=== PATIENT | female | born 1985 | race Caucasian/White ===

== ENCOUNTER 2020-07-12 11:40 | Emergency (ER) | payer OTHER ==
[2020-07-12 11:54] VITALS: BP 128/80
[2020-07-12] MEDS ORDERED: predniSONE 20 MG TABLET PO STA (12:55)
--- NOTE | 2020-07-12 13:00 | ED Physician Documentation ---
PD HPI LOWER EXT INJURY - Stated complaint Stated Complaint: R KNEE PX/SWELLING - Chief complaint Chief Complaint: Ext Problem - History obtained from History obtained from: Patient - Additional information Additional information: 25-year-old woman has had a lot of joint problems in her life. She has had some issues with the right knee as well. About a month ago she was down on her knees for a couple of hours grooming a dog. Been bothering her ever since but this morning she woke up with significant swelling of the right knee. 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, Tubal ligation - Present Medications Home Medications: Ambulatory Orders Medication Instructions Recorded Confirmed Cyclobenzaprine [Flexeril] 10 mg PO TID PRN #20 tablet 07/12/20 predniSONE [Deltasone] 20 mg PO [id number] #21 tab 07/12/20 - Allergies Allergies/Adverse Reactions: Allergies Allergy/AdvReac Type Severity Reaction Status Date / Time acetaminophen [From Percocet] AdvReac Nausea Verified 07/12/20 12:51 hydrocodone [From Vicodin] AdvReac Nausea Verified 07/12/20 12:51 oxycodone [From Percocet] AdvReac Nausea Verified 07/12/20 12:51 - Social History Does the pt smoke?: No Smoking Status: Former smoker PD ED PE NORMAL - Vitals Vital signs reviewed: Yes - General General: Alert and oriented X 3, No acute distress - Extremities Extremities: Other (The right knee has a large effusion, its not warm or tender. No severely limited range of motion.) - Neuro Neuro: Alert and oriented X 3, Normal speech Results - Vitals Vitals: Vital Signs - 24 hr 07/12/20 11:47 Temperature 36.7 C Heart Rate 99 Respiratory 16 Rate Blood Pressure 128/80 O2 Saturation 97 Oxygen O2 Source Room air - Labs Labs: Laboratory Tests 07/12/20 07/12/20 07/12/20 13:18 13:18 13:18 WBC 4.3 L RBC 4.60 Hgb 13.5 Hct 40.9 MCV 88.9 MCH 29.3 MCHC 33.0 RDW 12.1 Plt Count 287 MPV 9.4 Neut # (Auto) 2.4 Lymph # (Auto) 1.4 L [place] # (Auto) 0.5 Eos # (Auto) 0.1 Baso # (Auto) 0.0 Absolute Nucleated RBC 0.00 Nucleated RBC % 0.0 ESR 8 Sodium Potassium Chloride Carbon Dioxide Anion Gap BUN Creatinine Estimated GFR (MDRD) Glucose Uric Acid Calcium C-Reactive Protein Rheumatoid Factor NEGATIVE 07/12/20 13:18 WBC RBC Hgb Hct MCV MCH MCHC RDW Plt Count MPV Neut # (Auto) Lymph # (Auto) [place] # (Auto) Eos # (Auto) Baso # (Auto) Absolute Nucleated RBC Nucleated RBC % ESR Sodium 137 Potassium 3.9 Chloride 103 Carbon Dioxide 22 Anion Gap 12.0 BUN 10 Creatinine 0.5 Estimated GFR (MDRD) 150 Glucose 81 Uric Acid 3.0 Calcium 8.8 C-Reactive Protein < 1.0 Rheumatoid Factor PD MEDICAL DECISION MAKING - ED course ED course: 25-year-old woman has a history of polyarthropathy and now a joint effusion which is likely posttraumatic versus less likely inflammatory. Her inflammatory markers and uric acid are reassuring against a systemic cause of her polyarthropathy. Departure - Departure Disposition: 01 Home, Self Care Clinical Impression: Knee effusion, right Condition: Good Record reviewed to determine appropriate education?: Yes Instructions: ED Effusion Knee Prescriptions: predniSONE [Deltasone] 20 mg PO [id number] #21 tab Cyclobenzaprine [Flexeril] 10 mg PO TID PRN #20 tablet PRN Reason: Spasms Comments: You were seen today for an effusion of the right knee joint. We have prescribed steroids for this and some muscle relaxers. Your inflammatory markers and basic blood work are negative. Still pending, and will complete today are JUAN JOSE screen with reflex titers, anti-CCP, and rheumatoid factor. To get these results, the easiest way is to log into the hospital website at [email or web address] and go to the "[facility]" tab and sign up for the patient portal. You should also discuss the pending [place] Return for new or worsening symptoms. Discharge Date/Time: 07/12/20 14:07
[2020-07-12 13:25] LABS: BASOPHILS % (AUTO) 0.9 %; EOSINOPHILS # (AUTO) 0.1 10^3/uL (0.0-0.7); EOSINOPHILS % (AUTO) 1.4 %; HGB - HEMOGLOBIN 13.5 g/dL (12.0-16.0); LYMPHOCYTES # (AUTO) 1.4 10^3/uL (1.5-3.5); LYMPHOCYTES % (AUTO) 32.7 %; MEAN CORPUSCULAR HEMOGLOBIN 29.3 pg (27.0-31.0); MEAN CORPUSCULAR VOLUME 88.9 fL (81.0-99.0); MEAN PLATELET VOLUME 9.4 fL (7.9-10.8); MONOCYTES # (AUTO) 0.5 10^3/uL (0.0-1.0); MONOCYTES % (AUTO) 10.6 %; NEUTROPHILS # (AUTO) 2.4 10^3/uL (1.5-6.6); NEUTROPHILS % (AUTO) 54.2 %; PLT - PLATELET COUNT 287 10^3/uL (130-450); RED CELL DISTRIBUTION WIDTH 12.1 % (12.0-15.0); WHITE BLOOD COUNT 4.3 x10^3/uL (4.8-10.8)
--- NOTE | 2020-07-12 13:30 | XRAY Report ---
PROCEDURE: Knee 4 View RT INDICATIONS: knee pain/effusion TECHNIQUE: 3 views of the right knee(s) were acquired. COMPARISON: None. FINDINGS: Bones: No fractures or dislocations. No suspicious bony lesions. The knee joint spaces are relativ pb well-preserved. Soft tissues: There is a minimal joint effusion. No suspicious soft tissue calcifications. IMPRESSION: Minimal joint effusion. No significant plain film abnormality is seen. If there is strong clinical concern for internal derangement of the knee, please consider a dedicated , scheduled knee MRI for further evaluation (assuming that there is no contraindication). Reviewed by: Robinson Gusman MD on 07/12/2020 12:28 PM [facility] Approved by: Robinson Gusman MD on 07/12/2020 12:28 PM [facility] Station ID: [id number]
[2020-07-12 13:41] LABS: BUN - BLOOD UREA NITROGEN 10 mg/dL (6-20); CALCIUM 8.8 mg/dL (8.5-10.3); CARBON DIOXIDE - CO2 22 mmol/L (21-32); CHLORIDE 103 mmol/L (101-111); CREATININE 0.5 mg/dL (0.4-1.0); GLUCOSE 81 mg/dL (70-100); SODIUM 137 mmol/L (135-145)
[2020-07-12 13:48] LABS: CRP - C-REACTIVE PROTEIN < 1.0 mg/dL (0-1.0)
[2020-07-12 14:01] LABS: RHEUMATOID FACTOR NEGATIVE (Negative)
[2020-07-16 07:52] LABS: ANA SCREEN NEGATIVE (NEGATIVE)
== END 2020-07-12 14:07 | disposition home or self-care (01) ==
LOC: EDBD 11:40 → ED 11:40
DX: M25.461 Effusion, right knee (principal); Z87.891 Personal history of nicotine dependence
CPT/HCPCS: 36415; 73564; 80048; 84550; 85025; 85651; 86038; 86140; 86200; 86430; 99283; 99284; J7512

== ENCOUNTER 2020-12-08 16:01 | Outpatient (CLI) | payer OTHER ==
[2020-12-08 16:18] LABS: BASOPHILS % (AUTO) 0.4 %; EOSINOPHILS # (AUTO) 0.1 10^3/uL (0.0-0.7); EOSINOPHILS % (AUTO) 1.3 %; HGB - HEMOGLOBIN 12.9 g/dL (12.0-16.0); LYMPHOCYTES # (AUTO) 1.2 10^3/uL (1.5-3.5); LYMPHOCYTES % (AUTO) 26.3 %; MEAN CORPUSCULAR HEMOGLOBIN 29.1 pg (27.0-31.0); MEAN CORPUSCULAR HGB CONC 33.1 g/dL (32.0-36.0); MEAN CORPUSCULAR VOLUME 87.8 fL (81.0-99.0); MEAN PLATELET VOLUME 8.8 fL (7.9-10.8); MONOCYTES # (AUTO) 0.3 10^3/uL (0.0-1.0); MONOCYTES % (AUTO) 6.7 %; NEUTROPHILS % (AUTO) 65.1 %; PLT - PLATELET COUNT 250 10^3/uL (130-450); RED BLOOD COUNT 4.44 10^6/uL (4.20-5.40); RED CELL DISTRIBUTION WIDTH 12.5 % (12.0-15.0); WHITE BLOOD COUNT 4.6 x10^3/uL (4.8-10.8)
== END 2020-12-08 16:02 | disposition home or self-care (01) ==
LOC: LAB 16:01
PROVIDERS: ATTEND Obstetrics & Gynecology
DX: N92.4 Excessive bleeding in the premenopausal period (principal)
CPT/HCPCS: 36415; 85025

== ENCOUNTER 2021-08-03 06:17 | Day surgery (SDC) | payer OTHER ==
[2021-08-03] MEDS ORDERED: LACTATED RINGERS 1,000 ML IV ONE ×3 (06:25→12:00)
[2021-08-03] MEDS ORDERED: CELECOXIB 100 MG CAPSULE PO ONE (06:34)
[2021-08-03] MEDS ORDERED: ACETAMINOPHEN 500 MG TABLET PO ONE (06:34)
[2021-08-03] MEDS ORDERED: GABAPENTIN 400 MG CAPSULE ONE (06:34)
[2021-08-03] MEDS ORDERED: CEFAZOLIN SODIUM IN 0.9 % NACL 2 GM/100 ML BAG IV ONE (06:35)
[2021-08-03] MEDS ORDERED: PHENAZOPYRIDINE 100 MG TABLET PO ONE (06:35)
[2021-08-03] MEDS ORDERED: metroNIDAZOLE 500 MG/100 ML 500 MG/100 ML BAG ONE (06:35)
[2021-08-03] MEDS ORDERED: ONDANSETRON 4 MG/2 ML VIAL ONE ×2 (07:12→12:46)
[2021-08-03] MEDS ORDERED: LIDOCAINE-MPF 2% 5 ML VIAL ONE (07:12)
[2021-08-03] MEDS ORDERED: PROPOFOL 200 MG/20 ML VIAL IVP ONE (07:12)
[2021-08-03] MEDS ORDERED: DEXAMETHASONE 4 MG/ML VIAL ONE (07:12)
[2021-08-03] MEDS ORDERED: MIDAZOLAM 2 MG/2 ML VIAL ONE (07:12)
[2021-08-03] MEDS ORDERED: fentaNYL 100 MCG/2 ML VIAL ONE ×2 (07:12→10:42)
[2021-08-03] MEDS ORDERED: ROCURONIUM 50 MG/5 ML VIAL ONE ×3 (07:12→10:29)
[2021-08-03] MEDS ORDERED: LIDOCAINE MPF 2%-EPI 1:200000 20 ML VIAL ONE (07:23)
[2021-08-03] MEDS ORDERED: METHYLENE BLUE 0.5% 50 MG/10 ML AMPULE ONE (07:23)
[2021-08-03] MEDS ORDERED: BUPIVACAINE 0.5% PF 10 ML VIAL ONE (07:23)
--- NOTE | 2021-08-03 07:27 | ANESTHESIA ---
Pre-Anesthesia VS, & Labs - Diagnosis menorrhagia, dysmenorrhea - Procedure Total Laparoscopic Hysterectomy Vital Signs: Temp Pulse Resp BP Pulse Ox 36.5 C 84 18 135/85 H 100 08/03/21 06:31 08/03/21 06:31 08/03/21 06:31 08/03/21 06:31 08/03/21 06:31 Height: 5 ft 4 in Weight (kg): 102 kg Body Mass Index: 38.6 BMI Classification: Obese - NPO >8 hours - Is Patient ?: No - Lab Results Current Lab Results: Laboratory Tests 08/03/21 07:00: POC Whole Bld Glucose 89 Lab results reviewed: Yes Home Medications and Allergies Cetirizine [ZyrTEC] 10 mg PO DAILY 03/08/21 Ferrous Sulfate 325 mg PO DAILY 03/08/21 buPROPion [Wellbutrin Xl] 150 mg PO DAILY 03/08/21 Allergies/Adverse Reactions: Allergies Allergy/AdvReac Type Severity Reaction Status Date / Time acetaminophen [From Percocet] AdvReac Nausea Verified 07/12/20 12:51 hydrocodone [From Vicodin] AdvReac Nausea Verified 07/12/20 12:51 oxycodone [From Percocet] AdvReac Nausea Verified 07/12/20 12:51 Anes History & Medical History - Anesthetic History Anesthesia Complications: reports: No previous complications Family history of Anesthesia Complications: Denies Family history of Malignant Hyperthermia: Denies - Medical History Cardiovascular: reports: None Pulmonary: reports: None Gastrointestinal: reports: GERD Urinary: reports: None Neuro: reports: Migraines Musculoskeletal: reports: None Endocrine/Autoimmune: reports: None Skin: reports: None Smoking Status: Former smoker - Surgical History General: reports: Cholecystectomy, Other Gynecologic: reports: section Exam General: Alert, Oriented x3, Cooperative, No acute distress Dental: WNL Mouth Openin Fingerbreadth Neck Mobility: Normal Mallampati classification: I Respiratory: Lungs clear, Normal breath sounds, No respiratory distress, No accessory muscle use Cardiovascular: Regular rate, Normal S1, Normal S2, No murmurs Plan Anesthesia Type: General Consent for Procedure(s) Verified and Reviewed: Yes Code Status: Attempt Resuscitation ASA classification: 2-Mild systemic disease Is this case an emergency?: No
[2021-08-03] MEDS ORDERED: ePHEDrine 50 MG/ML VIAL IVP PRN (07:28)
[2021-08-03] MEDS ORDERED: METOCLOPRAMIDE 10 MG/2 ML VIAL IVP PRN (07:28)
[2021-08-03] MEDS ORDERED: fentaNYL 100 MCG/2 ML VIAL IVP PRN (07:28)
[2021-08-03] MEDS ORDERED: MORPHINE 2 MG/ML CARPUJECT IVP PRN (07:28)
[2021-08-03] MEDS ORDERED: NALOXONE 0.4 MG/ML VIAL IVP PRN (07:28)
[2021-08-03] MEDS ORDERED: ATROPINE ABBOJECT 1 MG/10 ML SYRINGE IVP PRN (07:28)
[2021-08-03] MEDS ORDERED: HYDROmorphone 0.5 MG/0.5 ML SYRINGE IVP PRN (07:28)
[2021-08-03] MEDS ORDERED: ONDANSETRON 4 MG/2 ML VIAL IVP PRN (07:28)
[2021-08-03 07:35] LABS: BASOPHILS % (AUTO) 0.9 %; EOSINOPHILS # (AUTO) 0.1 10^3/uL (0.0-0.7); EOSINOPHILS % (AUTO) 2.1 %; HCT - HEMATOCRIT 39.3 % (37.0-47.0); HGB - HEMOGLOBIN 13.1 g/dL (12.0-16.0); LYMPHOCYTES # (AUTO) 1.1 10^3/uL (1.5-3.5); LYMPHOCYTES % (AUTO) 32.1 %; MEAN CORPUSCULAR HEMOGLOBIN 29.6 pg (27.0-31.0); MEAN CORPUSCULAR HGB CONC 33.3 g/dL (32.0-36.0); MEAN CORPUSCULAR VOLUME 88.9 fL (81.0-99.0); MEAN PLATELET VOLUME 9.6 fL (7.9-10.8); MONOCYTES # (AUTO) 0.3 10^3/uL (0.0-1.0); MONOCYTES % (AUTO) 8.1 %; NEUTROPHILS # (AUTO) 1.9 10^3/uL (1.5-6.6); NEUTROPHILS % (AUTO) 56.2 %; PLT - PLATELET COUNT 254 10^3/uL (130-450); RED BLOOD COUNT 4.42 10^6/uL (4.20-5.40); RED CELL DISTRIBUTION WIDTH 12.6 % (12.0-15.0); WHITE BLOOD COUNT 3.3 x10^3/uL (4.8-10.8)
[2021-08-03] MEDS ORDERED: LACTATED RINGERS 1,000 ML IV SCH (08:00)
[2021-08-03] MEDS ORDERED: ePHEDrine 50 MG/ML VIAL IVP ONE (08:52)
[2021-08-03] MEDS ORDERED: BUPIVACAINE 0.25%-EPI 1:200000 PF 30 ML VIAL SUBQ ONE (09:04)
[2021-08-03] MEDS ORDERED: METHYLENE BLUE 0.5% 50 MG/10 ML AMPULE IR ONE (09:04)
[2021-08-03] MEDS ORDERED: VASOPRESSIN 20 UNIT/ML VIAL IVP ONE (09:05)
[2021-08-03] MEDS ORDERED: VASOPRESSIN 20 UNIT/ML VIAL ONE (09:06)
[2021-08-03] MEDS ORDERED: LIDOCAINE 2%-EPI 1:100000 20 ML MDV SUBQ ONE ×2 (09:28)
[2021-08-03] MEDS ORDERED: BUPIVACAINE 0.5% PF 10 ML VIAL IM ONE ×2 (09:29)
[2021-08-03] MEDS ORDERED: SUGAMMADEX 200 MG/2 ML VIAL IVP ONE (11:04)
[2021-08-03] MEDS ORDERED: LIDOCAINE 2% URO-JET 5 ML SYRINGE UR ONE (11:14)
[2021-08-03] MEDS ORDERED: SCOPOLAMINE PATCH TOP PRN (11:39)
[2021-08-03] MEDS ORDERED: SIMETHICONE CHEW 80 MG TABLET PO PRN (11:39)
--- NOTE | 2021-08-03 11:56 | OPERATIVE REPORT ---
Operative Report - General Procedure Date: 08/03/21 Planned Procedure: Total laparoscopic hysterectomy with bilateral salpingectomy and cystoscopy Pre-Op Diagnosis: DUB and pelvic pain Procedure Performed: Total laparoscopic hysterectomy with bilateral salpingectomy and cystoscopy Post Op Diagnosis: Same - Procedure Note Primary Surgeon: Michelle Flores MD Secondary Surgeon: Ranjith Felix MD Anesthesia Provider: Lonny Cohen CRNA Pathology: Uterus with bilateral fallopian tubes and cervix. IV Fluids (mL): 1,800 Estimated Blood Loss (mL): 75 Urine Output (mL): 200 Indications: Patient is a 36-year-old G2, P2 here for total laparoscopic hysterectomy and cystoscopy. Surgery was recommended after patient presented with chief complaint heavy periods present for the the last 4 years. She changes a pad every 4 hours and has flow for total of 10 days. Often passes quarter sized clots. She gets up in the middle of the night to change her pad. She whenever she travels carries extra pads with her. She states she plans her life around her periods. She is also had difficulty with some midcycle bleeding. She gives a history of having been anemic in the past.Also has pain with menses that are minimally managed with NSAIDs. Avoiding NSAIDs 2/2 gastric bypass. Has had CS x2 and tubal ligation. Pelvic us in 09/2020 was unremarkable with EMS 7 mm. 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 She eats protein every 2 hours. She had gastric bypass in 2009, [id number]. She has had nutritional labs checked recently. She reports that she has had both a pap smear and endometrial biopsy. Confirmed biopsy was taken 09/23/20 and was absent of hyperplasia or malignancy. Last pap at [facility] was December 2017 and was wnl. Findings: Normal appearing uterus with evidence of prior tubal ligation, extensive bladder adhesions, normal appearing ovaries with small simple cyst of about 1 cm in size on the right ovary. Normal survey of the abdomen with poor visualization of the upper abdomen due to poorly mobilized viscera. Complications: None - Other Other Information/Narrative: Risks benefits and alternatives of the procedure were reviewed. Consent was again confirmed. Patient was brought to the operating room and underwent general anesthesia. She was placed in dorsal lithotomy position with legs resting in yellowfin stirrups. SCDs were in place and activated. Cefazolin 2 g IV was administered prior to start of procedure. She was prepped and draped in the usual sterile fashion. Surgical timeout was performed. Bimanual exam was performed. Sterile speculum was placed. The cervix was visualized and a total of 20 cc of 2% lidocaine and 0.25% bupivicaine with epinephrine was injected into the uterosacral ligaments. The cervical os was serially dilated with Hegar dilators to accommodate the uterine manipulator. A total of 10 cc of vasopressin 10 units in 50 cc NS was injected into the cervix to allow for further dilation. The Recreation Engineer uterine manipulator was placed, confirming that the cup was flush with the vaginal fornices. It was attached to the [email or web address] uterine positioning system. Sykes catheter was placed, the bladder was drained, and the bladder was then back filled with 50 cc of dilute methylene blue. The catheter was then clamped. The base of the umbilicus was anesthetized with intradermal injection of 0.5% Marcaine. A 5 mm skin incision was made with a scalpel. A 5 mm blunt trocar was inserted under direct visualization using Visiport. Once the port was confirmed to be placed intraperitoneally, the abdomen was insufflated to 15 mmHg with CO2 gas Exploration of the abdomen and pelvis was confirmed that no injury was sustained with placement of the trocar. Two additional 5 mm ports were placed in the right and left lower quadrants, taking care to avoid the epigastric arteries, while under direct visualization via laparoscopic guidance. The abdomen was explored with the laparoscope, with findings as noted. The left fallopian tube was grasped and elevated at the fimbriated end. The underlying mesosalpinx was sealed and resected to the insertion point onthe uterine cornua using the Ligasure device. The round ligament on the left aspect of the uterus was sealed/transected/and divided. The uterine ovarian ligament was transected using the LigaSure bipolar device. A bladder flap was mobilized by dividing the round ligaments using the bipolar cutting forceps, and the peritoneum on the vesicouterine fold was incised to mobilize the bladder. Once the colpotomy ring was skeletonized and in position, the uterine arteries were sealed using the bipolar forceps at the level of the colpotomy ring. This was repeated on the right aspect of the uterus in the same manner. The bladder dissection was performed over the colpotomy ring. Colpotomy was performed using Harmonic scalpel, resulting in separation of the uterus. The uterus was then delivered through the vagina. Attention was then turned to the vaginal cuff closure. The abdomen was de- sufflated. The edges of the cuff were grasped with long Allis clamps. The cuff was closed in a series of figure of 8 sutures using 0-vicryl. The abdomen was insufflated. Closure of the cuff was airtight. Good hemostasis was noted. At no time was spillage of methylene blue noted in the surgical field. The vaginal cuff was visualized internally and noted to have good hemostasis. A small cyst on the right ovary was removed at its base with by sealing and transecting with the Ligasure device. The cyst was removed from the field through a lateral port. The abdomen was partially desufflated. Pedicles were observed under decreased pressure and good hemostasis was again confirmed. Abdomen was then completely desufflated. All instruments were removed from the abdomen. Skin was closed with interrupted subcuticular stitches using 4-0 Monocryl. Dermabond was applied over the suture sites. We then turned our attention to the cystoscopic portion of the procedure. Sykes catheter was removed and the cystoscope was inserted. Bladder was instilled with NS. A survey of the bladder showed no trauma or presence of suture in the bladder topography. Patient had been pretreated with pyridium. Vigorous ureteral jets were observed bilaterally. Cystoscope was removed after bladder was drained. Sykes catheter was replaced. The final sponge needle and instrument counts were correct at completion of the procedure patient was awakened taken to the postanesthesia care unit in stable condition. Dr. Felix assisted with suturing, retraction, and completion of their side of the hysterectomy.
--- NOTE | 2021-08-03 12:06 | ANESTHESIA POST OP EVALUATION ---
Anesthesia Post Eval - Post Anesthesia Eval Vitals: Last Vital Signs Temp 36 C L 08/03/21 11:45 Pulse 91 08/03/21 11:55 Resp 14 08/03/21 11:55 BP 126/79 08/03/21 11:55 Pulse Ox 94 08/03/21 11:55 CV Function Including HR & BP: Stable Pain Control: Satisfactory Nausea & Vomiting: Negative Mental Status: Baseline Respiratory Status: Airway Patent Hydration Status: Satisfactory Anesthesia Complications: None
[2021-08-03] MEDS: KETOROLAC 30 MG/ML VIAL IVP SCH ×2 (12:07→18:05)
[2021-08-03] MEDS ORDERED: KETOROLAC 15 MG/ML VIAL ONE (12:12)
[2021-08-03] MEDS: ONDANSETRON ODT 4 MG TABLET TL PRN ×2 (13:03→21:44)
[2021-08-03] MEDS: ACETAMINOPHEN 500 MG TABLET PO SCH ×2 (13:29→21:43)
[2021-08-03] MEDS: GABAPENTIN 300 MG CAPSULE PO SCH ×2 (13:30→21:44)
[2021-08-03] MEDS: LACTATED RINGERS 1,000 ML IV SCH (14:00)
[2021-08-03] MEDS ORDERED: LIDOCAINE 1% 2 ML VIAL ONE (14:06)
[2021-08-03] MEDS ORDERED: HYDROmorphone 0.5 MG/0.5 ML SYRINGE IVP SCH (16:51)
[2021-08-03] MEDS ORDERED: FAMOTIDINE 20 MG/2 ML VIAL IVP ONE (17:04)
[2021-08-03] MEDS ORDERED: oxyCODONE 5 MG TABLET PO ONE (17:05)
[2021-08-03] MEDS: DOCUSATE SODIUM 100 MG CAPSULE PO SCH (21:43)
[2021-08-04] MEDS: KETOROLAC 30 MG/ML VIAL IVP SCH ×2 (00:20→05:56)
[2021-08-04] MEDS ORDERED: oxyCODONE 5 MG TABLET PO PRN (01:07)
[2021-08-04] MEDS: ACETAMINOPHEN 500 MG TABLET PO SCH (05:55)
[2021-08-04] MEDS: ONDANSETRON ODT 4 MG TABLET TL PRN ×2 (05:56→11:52)
[2021-08-04] MEDS: GABAPENTIN 300 MG CAPSULE PO SCH (05:56)
[2021-08-04 06:03] LABS: BASOPHILS % (AUTO) 0.2 %; EOSINOPHILS % (AUTO) 0.4 %; HCT - HEMATOCRIT 34.8 % (37.0-47.0); HGB - HEMOGLOBIN 11.6 g/dL (12.0-16.0); LYMPHOCYTES # (AUTO) 1.4 10^3/uL (1.5-3.5); LYMPHOCYTES % (AUTO) 26.6 %; MEAN CORPUSCULAR HEMOGLOBIN 29.6 pg (27.0-31.0); MEAN CORPUSCULAR HGB CONC 33.3 g/dL (32.0-36.0); MEAN CORPUSCULAR VOLUME 88.8 fL (81.0-99.0); MEAN PLATELET VOLUME 9.5 fL (7.9-10.8); MONOCYTES # (AUTO) 0.5 10^3/uL (0.0-1.0); MONOCYTES % (AUTO) 9.7 %; NEUTROPHILS # (AUTO) 3.2 10^3/uL (1.5-6.6); NEUTROPHILS % (AUTO) 62.9 %; PLT - PLATELET COUNT 229 10^3/uL (130-450); RED BLOOD COUNT 3.92 10^6/uL (4.20-5.40); RED CELL DISTRIBUTION WIDTH 12.7 % (12.0-15.0); WHITE BLOOD COUNT 5.1 x10^3/uL (4.8-10.8)
[2021-08-04] MEDS ORDERED: ENOXAPARIN 40 MG/0.4 ML SYRINGE SUBQ SCH (09:00)
[2021-08-04] MEDS: LACTATED RINGERS 1,000 ML IV SCH (09:27)
[2021-08-04] MEDS: DOCUSATE SODIUM 100 MG CAPSULE PO SCH (09:39)
[2021-08-04 09:44] VITALS: BP 121/63
== END 2021-08-04 13:00 | disposition home or self-care (01) ==
LOC: SDS 06:17 → FBP 12:30 → SDS 08-04 13:00
PROVIDERS: ATTEND Obstetrics & Gynecology
PROC: 0UT74ZZ Resection of Bilateral Fallopian Tubes, Percutaneous Endoscopic Approach (ICD-10-PCS; 2021-08-03)
PROC: 0UT94ZZ Resection of Uterus, Percutaneous Endoscopic Approach (ICD-10-PCS; principal; 2021-08-03 07:30)
DX: N93.8 Other specified abnormal uterine and vaginal bleeding (principal); N92.4 Excessive bleeding in the premenopausal period; N94.6 Dysmenorrhea, unspecified; N83.291 Other ovarian cyst, right side; R10.2 Pelvic and perineal pain; E66.9 Obesity, unspecified; Z68.38 Body mass index [BMI] 38.0-38.9, adult; Z87.891 Personal history of nicotine dependence
CPT/HCPCS: 36415; 58571; 85025; A9270; J0690; J1650; J3490; J7120; Q0162

== ENCOUNTER 2022-08-17 09:14 | Emergency (ER) | payer OTHER ==
[2022-08-17 10:17] LABS: RAPID STREP SCREEN Negative (Negative)
[2022-08-17 12:26] VITALS: BP 142/81
--- NOTE | 2022-08-17 13:22 | ED Physician Documentation ---
History of Present Illness - Stated complaint Stated Complaint: COUGH/PARIS/BACK PX - Chief complaint Chief Complaint: General - History obtained from History obtained from: Patient - Additonal information Additional information: The patient comes to the emergency department chief complaint of cough, headache, and nasal congestion for the last week. She states that she has been exposed to several coworkers who have COVID, but she is taken several tests and they have all come back negative. The patient denies any GI symptoms. No fevers. She states she has tried taking Tessalon Perles and [id number] cough medicine at home its not helping. She denies any other complaints at this time. Review of Systems Constitutional: reports: Reviewed and negative Eyes: reports: Reviewed and negative Ears: reports: Reviewed and negative Nose: reports: Rhinorrhea / runny nose, Congestion Throat: reports: Sore throat Cardiac: reports: Reviewed and negative Respiratory: reports: Cough GI: reports: Reviewed and negative : reports: Reviewed and negative Skin: reports: Reviewed and negative Musculoskeletal: reports: Reviewed and negative Neurologic: reports: Reviewed and negative Psychiatric: reports: Reviewed and negative Endocrine: reports: Reviewed and negative Immunocompromised: reports: Reviewed and negative PD PAST MEDICAL HISTORY - Past Medical History Cardiovascular: None Respiratory: None Neuro: Migraines Endocrine/Autoimmune: None GI: GERD : None HEENT: Chronic vision loss Psych: Depression, Anxiety, Panic attacks Musculoskeletal: None Derm: None - Past Surgical History Past Surgical History: Yes General: Cholecystectomy, 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 - Present Medications Home Medications: Ambulatory Orders Medication Instructions Recorded Confirmed Cetirizine [ZyrTEC] 10 mg PO DAILY 03/08/21 07/28/21 Ferrous Sulfate 325 mg PO DAILY 03/08/21 07/28/21 buPROPion [Wellbutrin Xl] 150 mg PO DAILY 03/08/21 07/28/21 Acetaminophen [Acetaminophen Extra 1,000 mg PO Q8H PRN #60 tablet 08/03/21 Strength] Docusate Sodium 100Mg Capsule 100 - 200 mg PO BID PRN #60 cap 08/03/21 [Colace 100Mg Capsule] Gabapentin [Neurontin] 300 mg PO TID PRN #60 cap 08/03/21 Ibuprofen [Motrin] 600 mg PO Q6H PRN #60 tab 08/03/21 oxyCODONE [Roxicodone] 2.5 - 5 mg PO Q4H PRN #10 tablet 08/04/21 oxyCODONE [Roxicodone] 2.5 - 5 mg PO Q4H PRN #10 tablet 08/04/21 HYDROcod/ACETAM 5/325 [[place] 5/325] 1 - 2 tab PO Q6H PRN #15 tablet 08/17/22 HYDROcodone/ACET 7.5/325 MADAI 10 ml PO Q6HR PRN #100 ml 08/17/22 [Lortab 7.5/325 Madai] Ondansetron Odt [Zofran] 4 mg TL Q6H PRN #10 tablet 08/17/22 predniSONE [Deltasone] 60 mg PO DAILY 5 Days #15 tablet 08/17/22 - Allergies Allergies/Adverse Reactions: Allergies Allergy/AdvReac Type Severity Reaction Status Date / Time hydrocodone [From Vicodin] AdvReac Nausea Verified 08/17/22 09:39 oxycodone [From Percocet] AdvReac Nausea Verified 08/17/22 09:39 - Social History Does the pt smoke?: No Smoking Status: Former smoker PD ED PE NORMAL - Vitals Vital signs reviewed: Yes - General General: Alert and oriented X 3, No acute distress, Well developed/nourished - HEENT HEENT: Atraumatic, PERRL, EOMI, Moist mucous membranes, Pharynx benign - Neck Neck: Supple, no meningeal sign - Cardiac Cardiac: RRR, No murmur, Strong equal pulses - Respiratory Respiratory: No respiratory distress, Clear bilaterally - Derm Derm: Normal color, Warm and dry, No rash - Extremities Extremities: No deformity - Neuro Neuro: Alert and oriented X 3 - Psych Psych: Normal mood, Normal affect Results - Vitals Vitals: Vital Signs - 24 hr 08/17/22 08/17/22 09:35 12:26 Temperature 36.8 C Heart Rate 88 77 Respiratory 16 16 Rate Blood Pressure 151/93 H 142/81 H O2 Saturation 97 97 Oxygen O2 Source Room air - Labs Labs: Microbiology 08/17/22 09:43 Group A Strep Throat Culture - Preliminary Throat CULTURE IN PROGRESS. RESULTS TO FOLLOW. Laboratory Tests 08/17/22 08/17/22 09:43 09:43 Nasal Adenovirus (PCR) NOT DETECTED Nasal B. parapertussis DNA (PCR) NOT DETECTED Nasal Coronavir 229E PCR NOT DETECTED Nasal Coronavir HKU1 PCR NOT DETECTED Nasal Coronavir NL63 PCR NOT DETECTED Nasal Coronavir OC43 PCR NOT DETECTED Nasal Enterovir/Rhinovir PCR NOT DETECTED Nasal Influenza B PCR NOT DETECTED Nasal Influenza A PCR NOT DETECTED Nasal Parainfluen 1 PCR NOT DETECTED Nasal Parainfluen 2 PCR NOT DETECTED Nasal Parainfluen 3 PCR NOT DETECTED Nasal Parainfluen 4 PCR NOT DETECTED Nasal RSV (PCR) NOT DETECTED Nasal B.pertussis DNA PCR NOT DETECTED Nasal C.pneumoniae (PCR) NOT DETECTED Santos Human Metapneumo PCR NOT DETECTED Nasal M.pneumoniae (PCR) NOT DETECTED Nasal SARS-CoV-2 (PCR) DETECTED A Group A Strep Rapid Negative PD Medical Decision Making - ED course Complexity details: reviewed results, re-evaluated patient, considered differential, d/w patient ED course: The patient was well-appearing in the emergency department and we have discussed symptomatic management at home. I have given her prescriptions for this. A r espiratory PCR was sent and was pending at the time of patient's discharge, but was later found positive for COVID. The patient was notified. She will already be off work this week because her entire workplace shut down, due to the COVID outbreak. Departure - Departure Disposition: 01 Home, Self Care Clinical Impression: Upper respiratory infection, viral, COVID Condition: Stable Instructions: ED Viral Syndrome Prescriptions: HYDROcodone/ACET 7.5/325 MADAI [Lortab 7.5/325 Madai] 10 ml PO Q6HR PRN #100 ml PRN Reason: Pain predniSONE [Deltasone] 60 mg PO DAILY 5 Days #15 tablet HYDROcod/ACETAM 5/325 [[place] 5/325] 1 - 2 tab PO Q6H PRN #15 tablet PRN Reason: Pain Ondansetron Odt [Zofran] 4 mg TL Q6H PRN #10 tablet PRN Reason: Nausea / Vomiting Comments: Your symptoms are consistent with one of the many viral upper respiratory infections that are going around right now. Many of these causes the same types of symptoms and can last anywhere from a few days to a couple of weeks. It is also possible that you caught 1 and then cut something else toward the end of the first illness. At this point in time, a respiratory viral panel is pending. This can sometimes take up to a few hours to come back, so we will let to go home. Prescriptions for prednisone and a liquid narcotic solution have been electronically transmitted to the [facility] pharmacy In [place] at your request. We will let you know if you end up positive for COVID or influenza. Otherwise, please refer to our hospital website at [email or web address], click on the "my [email or web address] tab" and sign up for the patient portal to review your results. You may follow-up with your primary care physician as needed Discharge Date/Time: 08/17/22 14:01
[2022-08-17 13:32] LABS: B. PARAPERTUSSIS- RESP PCR PAN NOT DETECTED; B. PERTUSSIS- RESP PCR PANEL NOT DETECTED; C. PNEUMONIAE- RESP PCR PANEL NOT DETECTED; CORONAVIRUS 229E-RESP PCR NOT DETECTED; CORONAVIRUS HKU1-RESP PCR NOT DETECTED; CORONAVIRUS NL63-RESP PCR NOT DETECTED; CORONAVIRUS OC43-RESP PCR NOT DETECTED; HUMAN METAPNEUMOVIRUS NOT DETECTED; INFLUENZA A- RESP PCR PANEL NOT DETECTED; INFLUENZA B - RESP PCR PANEL NOT DETECTED; M. PNEUMONIAE- RESP PCR PANEL NOT DETECTED; PARAINFLUENZA VIRUS 1 NOT DETECTED; PARAINFLUENZA VIRUS 2 NOT DETECTED; PARAINFLUENZA VIRUS 3 NOT DETECTED; PARAINFLUENZA VIRUS 4 NOT DETECTED; RHINOVIRUS/ENTEROVIRUS NOT DETECTED; RSV- RESP PCR PANEL NOT DETECTED
[2022-08-17 13:33] LABS: SARS-CoV-2 -RESP PCR PANEL DETECTED
== END 2022-08-17 14:01 | disposition home or self-care (01) ==
LOC: ED 09:14
DX: U07.1 COVID-19 (principal); J06.9 Acute upper respiratory infection, unspecified
CPT/HCPCS: 87070; 87430; 87633; 99283

== ENCOUNTER 2023-01-09 07:15 | Outpatient (CLI) | payer OTHER | END 2023-01-09 07:16 | disposition short-term general hospital (02) | LOC: EMS 07:15 | DX: M79.604 Pain in right leg (principal); R10.31 Right lower quadrant pain | CPT/HCPCS: A0425; A0427 ==